=== PATIENT | female | born 2000 ===

== ENCOUNTER 2024-05-03 17:07 | Emergency (ER) | payer SELFPAY | END 2024-05-03 20:58 | disposition left against medical advice (07) | DX: Z53.21 Procedure and treatment not carried out due to patient leaving prior to being seen by health care provider (principal) | CPT/HCPCS: 99199 ==

== ENCOUNTER 2024-08-27 04:07 | Emergency (ER) | payer SELFPAY ==
[2024-08-27 04:07] VITALS: BP 103/50; PULSE 73; RESP 18; TEMP 36.8; O2SAT 100
[2024-08-27 04:14] VITALS: O2SAT 100
--- NOTE | 2024-08-27 04:16 | PC.NURSE ---
this patient bibems for initially sob, when RN assessed patient is breathing normally and is on room air with saturation of 100%. Patient is extremely intoxicated and has noticeable odor of ETOH. Patient keeps asking where is lenard (her boyfriend) RN explained to this patient that she was bibems and that he is not here at the moment. Patient reassured that we will run some test to make sure all checks out. Patient then states she needs to urinate and would like a HCG test. MD in room and states that he will order the same. This patient is on rn cardiac rehab and has stable vital signs. Patient has a protected air way.
--- NOTE | 2024-08-27 04:38 | ED.GENADULT ---
HPI - General Adult General Chief complaint: Altered Mental Status Stated complaint: Disorganized breathing, responsive to pain, ?ETOH Time Seen by Provider: 08/27/24 04:16 History of Present Illness HPI narrative: Patient is a 23-year-old female who presents emergency department chief complaint of alcohol intoxication. Patient has prior history and apparently EMS was called after she was highly intoxicated this evening and the patient was given oxygen a breathing treatment by EMS. The patient reports that she thinks she could be or may have a urinary tract infection. Related Data Allergies Allergy/AdvReac Type Severity Reaction Status Date / Time No Known Allergies Allergy Verified 08/27/24 04:22 Review of Systems Review of Systems: A 10 system review of systems was completed on the patient and is negative except for what is stated in the HPI. Nursing and ancillary documentation was reviewed. Exam Narrative: GENERAL: Well-appearing, well-nourished, and in no acute distress. HEAD: Normocephalic, atraumatic. EYES: PERRLA and EOMI. ENT: Nares clear, no rhinorrhea or epistaxis. Mucous membranes moist. NECK: Supple. CHEST: Clear to auscultation. No respiratory distress. HEART: Regular rate and rhythm. No murmur heard. Normal peripheral pulses. ABDOMEN: Soft, nontender, nondistended, normal active bowel sounds. EXTREMITIES: Normal range of motion. No edema. SKIN: Warm, dry, no rash. NEURO: No focal deficits. Alert and oriented x3. PSYCH: Normal mood and affect. Course Vital Signs Vital signs: Vital Signs Temperature 36.8 C 08/27/24 04:07 Pulse Rate 73 08/27/24 04:07 Respiratory Rate 18 08/27/24 04:07 Blood Pressure 103/50 L 08/27/24 04:07 Pulse Oximetry 100 08/27/24 04:07 Oxygen Delivery Room Air 08/27/24 04:07 Temperature 36.8 C 08/27/24 04:07 Pulse Rate 73 08/27/24 04:07 Respiratory Rate 18 08/27/24 04:07 Blood Pressure 103/50 L 08/27/24 04:07 Pulse Oximetry 100 08/27/24 04:14 Oxygen Delivery Room Air 08/27/24 04:14 Medical Decision Making [facility] Narrative Medical decision making narrative: Differential diagnosis includes alcohol intoxication, UTI, , Patient was hydrated in the emergency department and antiemetics Patient's blood alcohol level was 200 patient will be observed in the emergency department until she is safe to be 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4) M/mm3 Hgb 11.4 L (12.0-15.0) g/dL Hct 34.9 L (37.0-47.0) % MCV 80.8 (80-100) fl MCH 26.4 (26-34) pg MCHC 32.7 (32-36) g/dl RDW 14.7 H (11.5-14.5) % Plt Count 289 (150-375) k/mm3 MPV 9.2 (7.4-10.4) fl Immature Gran % (Auto) 0.2 (0-0.5) % Neut % (Auto) 33.7 L (45.5-73.1) % Lymph % (Auto) 53.6 H (18.3-44.2) % Barry % (Auto) 10.2 H (2.6-8.5) % Eos % (Auto) 1.8 (0-4.4) % Baso % (Auto) 0.5 (0.2-1.2) % Lymph # (Auto) 3.04 (0.9-3.2) K/mm3 Barry # (Auto) 0.6 (0.1-0.6) K/mm3 Eos # (Auto) 0.1 (0-0.3) K/mm3 Baso # (Auto) 0.0 (0.0-0.1) K/mm3 Abs Immat Gran (auto) 0.01 (0.00-0.031) K/mm3 Absolute Neuts (auto) 1.9 (1.3-6.7) K/mm3 Absolute Nucleated RBC 0.000 (0.0-0.012) K/mm3 Nucleated RBC % 0.0 (0.0-0.2) % Sodium 142 (137-145) mmol/L Potassium 3.8 (3.4-5.0) mmol/L Chloride 112 H (98-107) mmol/L Carbon Dioxide 24 (22-30) mmol/L Anion Gap 6 (4-12) mmol/L BUN 11 (7-17) mg/dL Creatinine 0.60 L (0.7-1.0) mg/dL Estim Creat Clear Calc 109 ml/min Estimated GFR > 60 (59 - ) Glucose 99 (65-110) mg/dL Calcium 8.6 (8.4-10.2) mg/dL Total Bilirubin 0.3 (0.2-1.3) mg/dL AST 25 (14-36) U/L ALT 15 (6-35) U/L Alkaline Phosphatase 69 (38-126) U/L Total Protein 7.0 (6.3-8.2) g/dL Albumin 4.1 (3.5-5.1) g/dL Urine Color Yellow (Yellow) Urine Appearance Clear (Clear) Urine pH 6.0 (5.0-9.0) Ur Specific Davison 1.008 (1.001-1.035) Urine Protein Negative (Negative) mg/dL Urine Glucose (UA) Negative (Negative) mg/dL Urine Ketones Negative (Negative) mg/dL Ur Blood (Man) 2+ H (Negative) Urine Nitrate Negative (Negative) Urine Bilirubin Negative (Negative) Urine Urobilinogen 0.2 (<2.0) mg/dL Leukocyte Esterase Rfl Trace H (Negative) ERYN/UL Urine RBC 6-10 H (0-2) /hpf Urine WBC 0-5 (0-3) /hpf Ur Squamous Epith Cells Occasional (Few) /hpf Urine Bacteria Rare /hpf Urine Casts 0-2 POC Urine HCG, Qual Negative (Negative) Ethyl Alcohol 200 (<10) mg/dL Discharge Plan Discharge Clinical Impression: Alcoholic intoxication Patient Disposition: Home, Self-Care Condition: Stable Instructions: Antibiotic Form, Alcohol Intoxication (ED) Follow-up/Referrals: Teodoro Fam MD [Physician] - PHYSICIAN,CHIEF INSPECTOR [Primary Care Provider] -
[2024-08-27 04:46] LABS: Basophils Percent Auto 0.5 % (0.2-1.2); Eosinophils Absolute Auto 0.1 K/mm3 (0-0.3); Eosinophils Percent Auto 1.8 % (0-4.4); Hematocrit 34.9 % (37.0-47.0); Hemoglobin 11.4 g/dL (12.0-15.0); Immature Granulocyte Absolute 0.01 K/mm3 (0.00-0.031); Immature Granulocyte Percent A 0.2 % (0-0.5); Lymphocytes Absolute Auto 3.04 K/mm3 (0.9-3.2); Lymphocytes Percent Auto 53.6 % (18.3-44.2); Mean Corpuscular HGB Conc 32.7 g/dl (32-36); Mean Corpuscular Hemoglobin 26.4 pg (26-34); Mean Corpuscular Volume 80.8 fl (80-100); Mean Platelet Volume 9.2 fl (7.4-10.4); Monocytes Absolute Auto 0.6 K/mm3 (0.1-0.6); Monocytes Percent Auto 10.2 % (2.6-8.5); Neutrophils Absolute Auto 1.9 K/mm3 (1.3-6.7); Neutrophils Percent Auto 33.7 % (45.5-73.1); Platelet Count Result 289 k/mm3 (150-375); Red Blood Count 4.32 M/mm3 (4.2-5.4); Red Cell Distribution Width 14.7 % (11.5-14.5); White Blood Count 5.7 K/mm3 (4.5-10.0)
[2024-08-27] MEDS: SODIUM CHLORIDE 0.9% IV 1,000 ML 999 ML IV CONT (04:47)
[2024-08-27] MEDS: ONDANSETRON INJ 4 MG/2 ML VIAL IV PUSH (04:47)
[2024-08-27 04:49] LABS: BEDSIDEPREGUCG Negative (Negative)
[2024-08-27 04:49] LABS: Add Urine Microscopic? YES; Appearance Urine Clear (Clear); Bacteria Urine Rare /hpf; Bilirubin Urine Negative (Negative); Blood Urine 2+ (Negative); Color Urine Yellow (Yellow); Glucose Urine UA Negative (Negative); Ketones Urine Negative (Negative); Leukocyte Esterase Ur Trace LEU/UL (Negative); Nitrate Urine Negative (Negative); Non Pathogenic Casts 0-2; Protein Urine Negative (Negative); Specific Grav Ur 1.008 (1.001-1.035); Squamous Epithelial Cell Urine Occasional /hpf (Few); Urobilinogen Urine 0.2 mg/dL (<2.0); WBC Urine 0-5 /hpf (0-3)
--- NOTE | 2024-08-27 04:52 | PC.NURSE ---
RN assisted patient to bathroom per patients request. Patient is very embarrassed and expressed please dont make me use a bed hines . RN explained to this patient that its probably best to use a bedpan due to her noticeable ETOH. Patient pushes to go to the bathroom. RN assisted patient to the bathroom. Patient was able to walk but had unsteady gait. Patients test is negative at bedside, patient informed and MD notified. Patients boyfriend is with patient at this time. They both state 'we dont know how she got so drunk because we drink like we did tonight often . Patient is laying on ER stretcher in room 11, with normal work of breathing.
[2024-08-27 04:54] LABS: Ethanol 200 mg/dL (<10)
[2024-08-27 04:56] LABS: Alanine Aminotransferase 15 U/L (6-35); Albumin Level 4.1 g/dL (3.5-5.1); Alkaline Phosphatase 69 U/L (38-126); Anion Gap 6 mmol/L (4-12); Aspartate Amino Transferase 25 U/L (14-36); Bilirubin,Total 0.3 mg/dL (0.2-1.3); Blood Urea Nitrogen 11 mg/dL (7-17); Calcium 8.6 mg/dL (8.4-10.2); Carbon Dioxide 24 mmol/L (22-30); Chloride 112 mmol/L (98-107); Estimated CRCL calculation 109 ml/min; Estimated Glomerular Filt Rate > 60; Glucose 99 mg/dL (65-110); Potassium 3.8 mmol/L (3.4-5.0); Sodium 142 mmol/L (137-145)
--- NOTE | 2024-08-27 06:26 | PC.NURSE ---
this patient is awaiting sobriety to be discharged. MD would like patient to be able to ambulate with steady gait.
--- NOTE | 2024-08-27 06:49 | PC.NURSE ---
patient family asked, why patient is still here. Informed that provider would like patient to be more awake, (sobriety) before discharge. Patient is resting on ER stretcher at this time.
[2024-08-27 08:12] VITALS: BP 105/72; PULSE 75; RESP 16; O2SAT 98
--- NOTE | 2024-08-27 08:15 | PC.NURSE ---
Pt. A&Ox4 and ambulatory.
== END 2024-08-27 08:25 | disposition home or self-care (01) ==
PROVIDERS: Emergency Provider Emergency Medicine
DX: F10.129 Alcohol abuse with intoxication, unspecified (principal); Y90.7 Blood alcohol level of 200-239 mg/100 ml
CPT/HCPCS: 36415; 80053; 81001; 81025; 82077; 85025; 96361; 96374; 99284; J2405; J7030

== ENCOUNTER 2025-07-31 13:44 | Emergency (ER) | payer OTHER, SELFPAY ==
[2025-07-31 13:48] VITALS: BP 137/80; PULSE 103; RESP 17; TEMP 36.4; O2SAT 99
--- OUTSIDE RECORDS SUMMARY | 2025-07-31 13:52 | XMS_ITS | Clinical Summary ---
Author Organization [facility] Address [facility] [place] [address] Care Team Providers Care Car Designer Name Role Phone Chanell Farr NP Primary Care Provider [phone] Allergies No known active allergies Medications albuterol (PROAIR RESPICLICK) 90 mcg/actuation inhaler Inhale 2 puffs every 6 (six) hours as needed for wheezing Active cyclobenzaprine (FLEXERIL) 5 mg tablet Take 1 tablet (5 mg total) by mouth 3 (three) times a day as needed 12/15/19 25 Active norethindrone-e.e stradioL-iron (Junel FE 10/10, ,) 1 mg-20 mcg (21)/75 mg (7) per tablet Take 1 tablet by mouth daily 84 tablet 3 02/22/20 25 Active FLUoxetine (PROzac) 20 mg capsule Take 1 capsule (20 mg total) by mouth daily 90 capsule 1 04/18/20 25 Active dicyclomine (BENTYL) 20 mg tablet Take 1 tablet (20 mg total) by mouth every 6 (six) hours 90 tablet 3 04/19/20 25 Active ondansetron (ZOFRAN) 4 mg tabletIndications :Nausea and vomiting, unspecified vomiting type Take 1 tablet (4 mg) total 30 minutes before starting colonoscopy prep. Use the 2nd tablet as needed for nausea and vomiting. 2 tablet 06/05/20 25 Active ferrous gluconate 324 mg (37.5 mg of elemental iron) tablet Take 0.0031 tablets (1 mg total) by mouth daily Active cyanocobalamin (Vitamin B-12) 100 mcg tabletIndications :Prevention of Vitamin B12 Deficiency Take 1 tablet (100 mcg total) by mouth daily Active lysine 1,000 mg tablet Take by mouth Active dicyclomine (BENTYL) 20 mg tablet Take 1 tablet (20 mg total) by mouth 2 (two) times a day 60 tablet 2 06/16/20 25 Active omeprazole (PriLOSEC) 40 mg capsule Take 1 capsule (40 mg total) by mouth 2 (two) times a day before breakfast and dinner for 14 days 28 capsule 06/22/20 25 Active bismuth subsalicylate 262 mg tablet,chewable Take 2 tablets (524 mg total) by mouth 4 (four) times a day before meals and nightly for 14 days 112 tablet 06/22/20 25 Active tetracycline (ACHROMYCIN,SUMYC IN) 500 mg capsule Take 1 capsule (500 mg total) by mouth 4 (four) times a day for 14 days 56 capsule 06/22/20 25 025 metroNIDAZOLE (FLAGYL) 500 mg tablet Take 1 tablet (500 mg total) by mouth 4 (four) times a day for 14 days 56 tablet 06/22/20 25 025 Active Problems Problem Noted Date Diagnosed Date Terminal ileitis with complication 06/05/2025 Assessment & Plan (06/05/2025 2:41 PM CDT): Orders: Calprotectin, fecal; Future CRP (acute phase); Future Abdominal pain 06/05/2025 Assessment & Plan (06/05/2025 2:41 PM CDT): Nausea and vomiting 06/05/2025 Anemia 06/05/2025 ASCUS with positive high risk HPV cervical 05/17 Overview (05/23/2025): 02/2025 - AScus with positive HR HPV 05/17/25- colposcopy with ECC and biopsy was done- bx and ECC were negative. Assessment & Plan (05/31/2025 3:21 PM CDT): Will plan to repeat pap in one year. Healthy lifestyle encouraged. Assessment & Plan (05/17/2025 2:34 PM CDT): Colposcopy with biopsy and ECC was done Encounter for surveillance of contraceptive pill s 11/23/2024 Assessment & Plan (11/23/2024 12:32 PM AIRCRAFT PILOT): I feel patient possibly suppressed her menses by taking hormone pills consecutively between September and October. That may explain some of her brown-tinged discharge, as she may be having breakthrough bleeding. A significant amount of time was spent educating patient on proper pill use. We discussed taking all pills in a pill pack around the same time every day. She is to start a new pack the very next day after finishing her last placebo pill rather are not she is bleeding. I did mention that sometimes the lower dose norethindrone containing COCs can cause patients not to have regular menstrual cycles, and often won't have menses at all. I did stress the importance that if her menses, if she continues to have monthly bleeding/cycles, should always start somewhere during the placebo week. If she is noticing her cycles are starting during week 1, 2, or 3, then her control may not be as effective and there is a higher chance of unexpected . She is to call office if this should occur. Condom use encouraged. IBD (inflammatory bowel disease) 09/07/2024 Assessment & Plan (04/25/2025 7:29 AM CDT): IBS vs. IBD. Ordered labs and referral to GI Orders: CBC with auto differential; Future Comprehensive metabolic panel; Future Calprotectin, fecal; Future FIT occult blood, fecal; Future Ambulatory referral to Gastroenterology; Future Assessment & Plan (09/07/2024 1:37 PM AIRCRAFT PILOT): IBD shown on CT scan. Will repeat check lab work today. I recommended a bland low FODMAP diet as close as she can follow it. Refer to GI. Finish out the Augmentin. She has Zofran for nausea. Iron deficiency anemia due to chronic blood loss 09/07/2024 Assessment & Plan (06/05/2025 2:41 PM CDT): Assessment & Plan (04/25/2025 7:29 AM CDT): Mild anemia last December. I asked her to get labs done. She is on control with iron. She may need daily oral iron. Referral to gI Orders: CBC with auto differential; Future Comprehensive metabolic panel; Future Calprotectin, fecal; Future FIT occult blood, fecal; Future Ambulatory referral to Gastroenterology; Future Assessment & Plan (09/07/2024 1:37 PM AIRCRAFT PILOT): Mild anemia found in the ER. Will recheck CBC and iron profile today. Irregular bleeding 06/10/2024 Assessment & Plan (02/21/2025 9:24 AM CDT): Again, discussed importance of taking pills regularly. HCG negative. Await pap results. Assessment & Plan (06/10/2024 2:55 PM CDT): Discussed likely from starting and stopping patch. She would like to restart the pill. Reviewed risks, benefits,warning signs, proper use. When to ER reviewed including large clots or saturating more than pad/hr. Closed head injury 05/03/2024 Moderate episode of recurrent major depressive d isorder 02/24/2024 Assessment & Plan (02/24/2024 9:34 AM CDT): Discussed starting a medication and pt is agreeable. Will start fluoxetine 20 mg . Discussed starting dose and titration to full dose, possible SE and time frame for expected results. Call if any suicidal thoughts or questions concerning SE. Do not abruptly stop medication without calling office. Follow up in 3-4 weeks for recheck and continuation of medications. Anxiety 01/25/2018 Assessment & Plan (09/07/2024 1:36 PM AIRCRAFT PILOT): She never started the fluoxetine has she states the pharmacy kept saying that did not have it. Will resend it to [facility]'s her preferred pharmacy. 20 mg once daily Resolved Problems Problem Noted Date Diagnosed Date Resolved Date Contusion of left knee 05/03/202409/07 Encounters Date Type Department Care Team Description 06/19/20 Results Follow-Up [facility] Gastroenterology at [address] [address] Lobo Carballo MD Surgical pathology 06/16/20 8:04 AM CDT Anesthesia Event [address] [address] Lobo Carballo MD Fitterer, Morgan Elisabeth, [employer] 06/16/20 8:00 AM CDT - 06/16/20 8:30 AM CDT Surgery [address] [address] Lobo Carballo MD ESOPHAGOGASTRODUODENOSCOPY BIOPSY 06/16/20 6:56 AM CDT - 06/16/20 9:15 AM CDT Hospital Encounter [address] [address] Lobo Carballo MD Nausea and vomiting, unspecified vomiting type; Anemia, unspecified type Discharge Disposition: Discharge to home or self care 06/06/20 Results Follow-Up [facility] Gastroenterology at [address] [address] Lobo Carballo MD CRP (acute phase) 06/05/20 2:55 PM CDT Lab [address] [address] Terminal ileitis with complication (HCC) 06/05/20 2:00 PM CDT Office Visit [facility] Gastroenterology at [address] [address] Lobo Carballo MD Terminal ileitis with complication (HCC) (Primary Dx); Iron deficiency anemia due to chronic blood loss; Abdominal pain 06/05/20 Orders Only [facility] Gastroenterology at [address] [address] Lobo Carbalol MD Nausea and vomiting, unspecified vomiting type (Primary Dx); Anemia, unspecified type 09/10/20 25 2:45 PM CDT Office Visit Brandon Adams [address] [facility] [address] [place] [address] Dixie Hsieh MD ASCUS with positive high risk HPV cervical (Primary Dx) 05/17/20 25 1:30 PM CDT Procedure visit Brandon Adams [address] [place] [address] [address] [place] [address] Dixie Hsieh MD ASCUS with positive high risk HPV cervical (Primary Dx); Pre-procedural examination 05/17/20 Orders Only Brandon Adams [address] [place] [address] [address] [place] [address] Dixie Hsieh MD 05/05/20 Telephone Brandon Adams [address] [place] [address] [address] [place] [address] Dixie Hsieh MD Appointment/Schedules from Last 3 Months Immunizations Immunization Administration Dates Next Due DTaP 05/01/2003,2002 DTaP / Hep B / IPV 02/27/2003 DTaP, Unspecified 06/13/2008,05/21/2004,02/28/20 HPV9 01/25/2018 Hep B, Unspecified 08/03/2003,02/27/2003, 003 HiB 05/21/2004 Hib (HbOC) 05/01/2003,02/27/2003 Hib (PRP-T) 2002 IPV 06/13/2008, 4,02/27/2003,12/22 Influenza, Quadrivalent, Spl it, Preservative Free, Intramuscular 07/16/2020 Influenza, Unspecified 09/21/2023(Deferr ed: Patient Refused),09/21/2022(Deferred: Patient Refused) MMR 06/13/2008,12/21/2003 Meningococcal MCV4P (Menactra) 07/16/2020,2016 Pneumococcal Conjugate 7-Valent 08/03/20 03,05/01/2003,02/27/2003,12/22 Pneumococcal Polysaccharide PPV23 2002 Tdap 06/10/2017 Varicella 06/13/2008,12/21/2003 Surgical History Surgery Date Site/Laterality Comments DILATION AND CURETTAGE OF UTERUS UPPER GASTROINTESTINAL ENDOSCOPY 06/16/2025 COLONOSCOPY 06/16/2025 ARM SURGERY Left w two titanium plates Medical History Medical History Date Comments Asthma Family History Medical History Relation Name Comments No Known Problems Father No Known Problems Mother Relation Name Status Comments Father Mother Social History Tobacco Use Types Packs/Day Years Used Date Smoking Tobacco: Every Day Vaping Smokeless Tobacco: Never Tobacco Cessation:Ready to Q uit: Not Asked; Counseling Given: Not Answered Alcohol Use Standard Drinks/Week Comments Yes 3 (1 standard drink = 0.6 oz pur e alcohol) PHQ-2 Answer Date Recorded PHQ-2 Total Score 0 05/17/2025 PHQ-9 Answer Date Recorded PHQ-9 Total Score 22 02/22/2024 AUDIT-C Answer Date Recorded Q1: How often do you have a drink containing alc ohol? 2-4 times a month 06/16/2025 Q2: How many drinks containi ng alcohol do you have on a typical day when you are drinking? 5 or 6 06/16/2025 Q3: How often do you have si x or more drinks on one occasion? Less than monthly 06/16/2025 Personal Safety Answer Date Recorded Have you ever been in or are you currently in a harmful physical or emotional relationship or is someone making you feel afraid or unsafe? Denies 06/16/2025 Comments No Sex and Gender Information Value Date Recorded Sex Assigned at Not on file Legal Sex Female 5:08 PM CDT Gender Identity Not on file Sexual Orientation Not on file Obstetrics History Para Term AB IAB SAB Ectopic Multiple Livin g Live Births 1 1 0 Date Outcome GA Total Labor Labor/2nd/3rd Weight Sex Type Anes PTL Lynette A1 A5 Name Clin AB Last Filed Vital Signs Vital Sign Reading Time Taken Comments Blood Pressure 114/78 06/16/2025 9:10 AM CDT Pulse 68 06/16/2025 9:10 AM CDT Temperature 36.6 C (97.8 F) 06/16/2025 8:46 AM CDT Respiratory Rate 20 06/16/2025 9:10 AM CDT Oxygen Saturation 100% 06/16/2025 9:10 AM CDT Inhaled Oxygen Concentration - - Weight 81.6 kg (180 lb) 06/16/2025 7:23 AM CDT Height 167.6 cm (5' 6) 06/16/2025 7:23 AM CDT Body Mass Index 29.05 06/16/2025 7:23 AM CDT Plan of Treatment Health Maintenance Due Date Last Done Comments Hepatitis C Screening 2002 Pneumococcal vaccine <65 (1 of 1 - PPSV23, PCV20, or PCV21) 2008 08/03/2003, 05/01/2003, 02/27/2003, Additional history exists HPV Vaccines (2 - 3-dose series) 02/22/2018 01/26/20 18 Meningococcal B Vaccine (1 o f 2 - Standard) 2018 Influenza Vaccine (#1) 2025 07/16/2020 Cervical Cancer Screening 02/21/2026 02/21/2025, Chlamydia and Gonorrhea (GC/ CT) Screening 02/21/2026 02/21/2025 Regular Well Visit/Exam 18-64 02/21/2026 02/21/2025, 02/18/2024 Depression Screening 05/17/2026 05/17/2025, 02/21/2025, 02/22/2024, Additional history exists DTaP/Tdap/Td Vaccine (7 - Td or Tdap) 06/10/2027 06/10/2017, 06/13/2008, 05/21/2004, Additional history exists Hepatitis B Screening Completed 08/03/2003 , 02/27/2003, 02/27/2003, Additional history exists Varicella Vaccines Completed 06/13/2008, 12/21/2003 Medical Devices Implanted Type Area Early Childhood Director Device Identifier Shelf Expiration Date Model / Serial / Lot Plate Left: Arm Procedures Procedure Name Priority Date/Time Associated Diagnosis Comments SURGICAL PATHOLOGY Routine 06/16/2025 8:13 AM CDT Nausea and vomiting, unspecified vomiting type Anemia, unspecified type EGD 06/16/2025 7:57 AM CDT COLONOSCOPY 06/16/2025 7:57 AM CDT COLON REMOVAL SNARE 06/16/2025 7:56 AM CDT Nausea and vomiting, unspecified vomiting type Anemia, unspecified type ESOPHAGOGASTRODUODENOSCOPY BIOPSY 06/16/2025 7:56 AM CDT Nausea and vomiting, unspecified vomiting type Anemia, unspecified type POCT HCG, URINE Routine 06/16/2025 7:16 AM CDT CRP (ACUTE PHASE) Routine 06/05/2025 3:04 PM CDT Terminal ileitis with complication (HCC) POCT HCG, URINE Routine 05/17/2025 1:45 PM CDT Pre-procedural examination TISSUE PATHOLOGY Routine 05/17/2025 12:00 AM CDT N. GONORRHOEAE/C. TRACHOMATI S AMPLIFICATION Routine 02/21/2025 9:14 AM CDT PAP, REFLEX HPV Routine 02/21/2025 9:14 AM CDT Well woman exam from Last 3 Months or Most Recently Relevant to Health Maintenance Results * Surgical pathology (06/16/2025 8:13 AM CDT) Tissue (Gastric/Stomach biopsy) 06/16/2025 8:13 AM CDT Tissue specimen (specimen) (Duodenum, Biopsy) 06/16/2025 8:14 AM CDT Tissue specimen (specimen) (Polyp(s), colon/colorectal, esophageal, gastric) 06/16/2025 8:26 AM CDT Narrative PATHOLOGY [facility] FOR [facility] - 06/19/2025 12:26 PM CDT [facility] Department of Pathology [address] [place] [address] Note to Patients: This report may contain a detailed description of human tissue sent by a health care provider to the laboratory for pathologic evaluation. The content of this report is essential for diagnosis and may provide important critical findings. This information may be unfamiliar to patients to review without a medical professional present. It is advised that the patient review this report in the presence of a health care provider who can answer questions and explain the details. Final Report Patient Name: KAILASH HERNANDEZ : 2000 (Age: 24) Gender: F Address: [address] [place] [address] Hospital #: [id number] Service: Gastro Location: Patient Type: [facility] Taken: 06/16/2025 Received: 06/16/2025 Accessioned: 06/16/2025 Reported: 06/19/2025 Physician(s): Joni Gautam N.P. Diagnosis: A. Stomach, biopsy: - Antral and oxyntic mucosa with focal active chronic Helicobacter pylori gastritis. B. Small intestine, duodenum, biopsy: - Duodenal mucosa with gastric mucin cell metaplasia, in keeping with peptic- type injury. - Negative for intraepithelial lymphocytosis, villous blunting and crypt hyperplasia. C. Colon, ascending, polyp, polypectomy: - Sessile serrated lesion. Austin Hollingsworth MD, PHD Report Electronically Reviewed and Signed Out By Austin Hollingsworth MD, PHD 06/19/2025 12:26:16 Specimen(s) Received: A: Stomach biopsy rule out H. Pylori - cold biopsy B: Duodenum biopsy rule out Celiac's disease - cold biopsy C: Ascending colon polyp - cold snare Microscopic Description: Unless gross-only is specified, the final diagnosis for each specimen is based on a microscopic examination of each tissue sample. Clinical History: The patient is a 24-year-old woman with unspecified nausea and vomiting, and anemia. Operative procedure: Upper GI endoscopy and colonoscopy with biopsy. Gross Description Received in three formalin jars labeled with the patient's identifiers. A. Labeled stomach biopsy rule out H pylori, cold biopsy and consists of two mccullough tissue fragments measuring 0.2 cm and 0.3 cm. Entirely submitted. Labeled A1. Jar 0. B. Labeled duodenal biopsy rule out celiac disease-cold biopsy and consists of six mccullough tissue fragments ranging from 0.1-0.2 cm. Entirely submitted. Labeled B1. Jar 0. C. Labeled ascending colon polyp-cold snare and consists of a 0.6 cm mccullough tissue fragment, which is entirely submitted. Labeled C1. Jar 0. jjmhb/06/16/2025 15:03 CHRIS Henriquez, PA (ASCP) Microscopic slide review and interpretation for this case was performed at [facility], Department of Surgical Pathology, [address] [facility] [place] [place] [id number], [place] [address] [facility] # [id number] us Lobo Carballo MD LAB PATHOLOGY ORDERABLES Fin al Result PATHOLOGY [facility]P [facility] FOR [facility] * EGD (06/16/2025 7:57 AM CDT) Anatomical Region Laterality Modality Other Narrative Procedure Note Lobo Carballo MD - 06/16/2025 7:57 AM CDT [facility] Patient Name: Kailash Hernandez Procedure Date: 06/16/2025 7:57 AM Date of : 2000 Admit Type: Outpatient Age: 24 Gender: Female Attending MD: Lobo Carballo M.D., Room: [facility]OC PROCEDURE 1 Note Status: Finalized Procedure: Upper GI endoscopy Indications: Abdominal pain Referring MD: Chanell Farr F.N.P. Providers: Lobo Carballo M.D. Medicines: Monitored Anesthesia Care Complications: No immediate complications. Estimated blood loss:None. Estimated Blood Loss: Estimated blood loss: none. Procedure: The benefits, risks, and alternatives to theprocedure and sedation were discussed and informed consentwas obtained. The scope was passed under direct vision. The [id number] UPPER ENDOSCOPY was introduced through the mouth, and advanced to the second part of duodenum. The upper GI endoscopy was accomplished without difficulty. The patient tolerated the procedure well. Findings: The esophagus was normal. Patchy minimal inflammation characterized by erythema was found inthe gastric antrum. Biopsies were taken with a cold forceps forHelicobacter pylori testing. The examined duodenum was normal. Biopsies for histology were takenwith a cold forceps for evaluation of celiac disease (2 bulb, 4 second portion). Impression: - Normal esophagus. - Minimal antral gastritis, characterized byerythema. Biopsied. - Normal examined duodenum. Biopsied to excludeceliac disease. Recommendation: - Await pathology results. - Await results of H pylori testing. Treat for eradication if H pylori positive. Lobo Carballo M.D. Lobo Carballo M.D. 06/16/2025 8:17:14 AM . Number of Addenda: 0 Note Initiated On: 06/16/2025 7:57 AM us Lobo Carballo MD ENDOSCOPY PROCEDURES Final R esult * Colonoscopy (06/16/2025 7:57 AM CDT) Anatomical Region Laterality Modality Other Narrative Procedure Note Lobo Carballo MD - 06/16/2025 7:57 AM CDT [facility] Patient Name: Kailash Hernandez Procedure Date: 06/16/2025 7:57 AM Date of : 2000 Admit Type: Outpatient Age: 24 Gender: Female Attending MD: Lobo Carballo M.D., Room: [facility] PROCEDURE 1 Note Status: Finalized Procedure: Colonoscopy Indications: Iron deficiency anemia, Abnormal CT of the GItract Referring MD: Janel Luna Providers: Lobo Carballo M.D. Medicines: Monitored Anesthesia Care Complications: No immediate complications. Estimated blood loss:None. Estimated Blood Loss: Estimated blood loss: none. Procedure: The benefits, risks and alternatives of theprocedure and sedation were discussed and informed consentwas obtained. All questions were answered. Please referto the signed informed consent document in the medical record. The scope was passed under direct vision.The [id number] COLONSCOPE was introduced through theanus and advanced to the terminal ileum. The colonoscopy was performed without difficulty. The patient tolerated the procedure well. The quality of thebowel preparation was good. A computer-assisted devicewith artificial intelligence ([employer]) designed todetect polyps was used during the exam. Findings: A 3 mm polyp was found in the ascending colon. The polyp was sessile. The polyp was removed with a cold snare. Resection and retrieval were complete. Internal hemorrhoids were found during retroflexion. The hemorrhoids were mild. The terminal ileum appeared normal. Impression: - One 3 mm polyp in the ascending colon, removedwith a cold snare. Resected and retrieved. - Internal hemorrhoids. - The examined portion of the ileum was normal. Recommendation: - Await pathology results. - Timing of repeat colonoscopy to be based on pathology results. Further recommendations tofollow once pathology results available. - Will start hyoscyamine 0.375mg twice daily for symptoms that likely represent irritable bowel syndrome. - Follow up in my office in approximately 12 weeksto discuss any residual symptoms. Lobo Carballo M.D. Lobo Carballo M.D. 06/16/2025 8:44:11 AM . Number of Addenda: 0 Note Initiated On: 06/16/2025 7:57 AM Lobo Carballo MD ENDOSCOPY PROCEDURES Final R esult * POCT hCG, urine (06/16/2025 7:16 AM CDT) HCG, ur, POC Negative Negative Lot Number [id number] QC Backgroud Clear Acceptable QC Control Line Acceptable Urine 06/16/2025 7:16 AM CDT Jay Alexis MD POINT OF CARE TEST RAYSHAWN TRIPLETT Final Result * CRP (acute phase) (06/05/2025 3:04 PM CDT) Pathologist [facility] CRP 7.8 <=10.0 mg/L Blood 06/05/2025 3:04 PM CDT 06/05/2025 6:29 PM CDT Loob Carballo MD LAB BLOOD ORDERABLES Final R esult [facility] [address] [facility] Department [place] [address] * POCT hCG, urine (05/17/2025 1:45 PM CDT) HCG, ur, POC Negative Negative Lot Number [id number] Comment:EXP: 01/18/2026 QC Backgroud Clear Acceptable QC Control Line Acceptable Urine 05/17/2025 1:45 PM CDT Dixie Hsieh MD POINT OF CARE TEST ORDERABLES Final Result * Surgical pathology tissue exam request - other pathology (05/17/2025 12:00 AM CDT) . Comment [facility] - 01 Comment: Material submitted: . PART A: cervix - CERVICAL BIOPSY 12:00. Modifiers: 12:00 PART B: endocervix - ENDOCERVICAL CURETTAGE . Comment [facility] - 01 Comment: Clinician provided ICD-10: R87.610 R87.810 . Comment [facility] - 01 Comment: Clinical history: . HX:ASCUS +HPV;12;00 . Comment [facility] 02 Comment: Diagnosis: Part A: CERVICAL BIOPSY 12:00: BENIGN CERVICAL TISSUE WITH REACTIVE CHANGES. ACUTE CERVICITIS. Part B: ENDOCERVICAL CURETTAGE: MINUTE FRAGMENTS OF BENIGN ENDOCERVICAL GLANDS, SCANT SQUAMOUS EPITHELIUM, INFLAMMATION, AND MUCUS. [facility] 05/23/2025 1505 Local . Comment [facility] 02 Comment: Electronically signed: . Miracle Braun MD, Pathologist . Comment [facility] 03 Comment: Gross description: . 2 Containers, formalin-filled, labeled with patient identification. Part A: CERVICAL BIOPSY 12:00: 1 FRAGMENT(S) OF MCCULLOUGH MUCOID TISSUE MEASURING 0.4 X 0.3 X 0.1 CM. SUBMITTED RECEIVED IN CASSETTE(S) A1. Part B: ENDOCERVICAL CURETTAGE: RECEIVED IS AN ENDOCERVICAL BRUSH. SCRAPINGS PRODUCE 1.0 X 1.0 X 0.1 CM IN AGGREGATE OF MUCUS AND HOPE-MCCULLOUGH SOFT MATERIAL. THE SPECIMEN IS FILTERED AND ENTIRELY SUBMITTED IN CASSETTE(S) B1. [facility] 05/19/2025 0401 Local . Comment [facility] Comment: Pathologist provided ICD-10: N72 . Comment [facility] Comment: CPT . [id number], [id number] 05/17/2025 05/17/2025 Narrative [facility] - 05/23/2025 4:12 PM CDT Performed at: - [facility] [address] [place] [id number] Scorer Single: Dev Schmidt MD, Phone: [phone] [facility]formed at: [facility] [address] [place] [id number] Scorer Single: Cheng Ferraro MD, Phone: [phone] Performed at: - [facility] [address] [place] [id number] Scorer Single: Dev Schmidt MD, Phone: [phone] Specimen Comment: No. of containers..02 Tissue us Dixie Hsieh MD LAB PATHOLOGY ORDER TANIA Final Result [facility] 02 [facility] 03 * (ABNORMAL) Pap, reflex HPV (02/21/2025 9:14 AM CDT) Clinical indication Comment(A) [facility] - 01 Comment: EPITHELIAL CELL ABNORMALITY. ATYPICAL SQUAMOUS CELLS OF UNDETERMINED SIGNIFICANCE (ASC-US). Recommendation Comment(A) [facility] - 01 Comment:Suggest follow up as clinically appropriate. Specimen adequacy: Comment [facility] - 01 Comment: Satisfactory for evaluation. Endocervical and/or squamous metaplastic cells (endocervical component) are present. Clinician provided ICD10 Comment [facility] - 01 Comment:Z01.419 Performed by Comment [facility] - 01 Comment:Aliya Ojeda, Fpga Engineer (ASCP) Electronically signed by Comment [facility] - 01 Comment:Claudia Kulkarni MD, Pa thologist . . [facility] - 01 Pathologist provided ICD10 Comment [facility] - 01 Comment:R87.610 Note: Comment [facility] - 01 Comment: The Pap smear is a screening test designed to aid in the detection of premalignant and malignant conditions of the uterine cervix. It is not a diagnostic procedure and should not be used as the sole means of detecting cervical cancer. Both false-positive and false-negative reports do occur. Test methodology Comment [facility] - 01 Comment: This liquid based ThinPrep(R) pap test was screened with the use of an image guided system. . Comment [facility] - 01 Comment:See below for HPV te sting results. Thin prep 02/21/2025 9:14 AM CDT 02/21/2025 Narrative [facility] - 02/27/2025 8:09 PM CDT Performed at: [address] [id number] Scorer Single: Allegra Mcfarlane MD, Phone: [phone] Specimen Comment: [id number] Specimen Comment: No. of containers..01 ThinPrep Vial Phyllis Parekh NP LAB CYTOLOGY ORDERABLES Fin al Result Performing Organization Address City/[facility] Co de Phone Number [facility] - * N. gonorrhoeae/C. trachomatis Amplification (02/21/2025 9:14 AM CDT) C. trachomatis RNA Negative Negative [facility] 02 N. gonorrhoeae RNA Negative Negative [facility] 02 02/21/2025 9:14 AM CDT 02/21/2025 Narrative [facility] - 02/27/2025 8:09 PM CDT Performed at: [address] [id number] Scorer Single: Allegra Mcfarlane MD, Phone: [phone] Phyllis Parekh NP LAB MICROBIOLOGY - GENERAL ORDERABLES Final Result Performing Organization Address City/[facility]/ZIP Co de Phone Number [facility] 02 from Last 3 Months or Most Recently Relevant to Health Maintenance Insurance [employer] CHOICE PLUS [address] [facility] [address] [place] [id number] [facility] CHOICE PLUS WORKERS COMPENSATION GENERIC [address] [place] [address] Care Teams Car Designer Relationship Specialty Start Date End Date Chanell Farr NP [address] [facility] [address] [place] [address] PCP - General Family Medicine 03/06/25
--- OUTSIDE RECORDS SUMMARY | 2025-07-31 13:52 | XMS_ITS | Encounter Summary ---
Author Organization [facility] Healthcare Address [address] [place] [address] Care Team Providers Care Alodize Machine Operator Name Role Phone Chanell Farr NP Primary Care Provider Encounter Details Date Type Department Care Team (Latest Contact Info) Description 06/06/2025 Results Follow-Up [facility] Group Gastroenterology at [address] [place] [address] Lobo Carballo MD [address] [place] [address] [address] [place] [address] CRP (acute phase) Social History Tobacco Use Types Packs/Day Years Used Date Smoking Tobacco: Every Day Vaping Smokeless Tobacco: Never Alcohol Use Standard Drinks/Week Comments Not Currently 0 (1 standard drink = 0.6 oz pur e alcohol) AUDIT-C Answer Date Recorded Q1: How often do you have a drink containing alc ohol? 2-4 times a month 02/18/2024 Q2: How many drinks containi ng alcohol do you have on a typical day when you are drinking? 5 or 6 02/18/2024 Q3: How often do you have si x or more drinks on one occasion? Less than monthly 02/18/2024 PHQ-2 Answer Date Recorded PHQ-2 Total Score 0 05/17/2025 PHQ-9 Answer Date Recorded PHQ-9 Total Score 22 02/22/2024 Personal Safety Answer Date Recorded Have you ever been in or are you currently in a harmful physical or emotional relationship or is someone making you feel afraid or unsafe? Denies 09/30/2024 Comments Unknown Sex and Gender Information Value Date Recorded Sex Assigned at Not on file Legal Sex Female 5:08 PM CDT Gender Identity Not on file Sexual Orientation Not on file documented as of this encounter Plan of Treatment Not on file documented as of this encounter Visit Diagnoses Not on filedocumented in this encounter Care Teams Alodize Machine Operator Relationship Specialty Start Date End Date Chanell Farr NP [address] [facility] [address] [place] [address] PCP - General Family Medicine 03/06/25 documented as of this encounter
--- OUTSIDE RECORDS SUMMARY | 2025-07-31 15:13 | XMS_ITS | Clinical Summary ---
Author Organization [facility] Address [facility] [place] [address] Care Team Providers Care Certified Paralegal Name Role Phone Chanell Farr NP Primary Care Provider [phone] Allergies No known active allergies Medications albuterol [...] 11/23/2024 Assessment & Plan (11/23/2024 12:32 PM SHAFTING CLEANER): I feel patient possibly suppressed her menses [...] Future Assessment & Plan (09/07/2024 1:37 PM SHAFTING CLEANER): IBD shown on CT scan. Will repeat [...] Future Assessment & Plan (09/07/2024 1:37 PM SHAFTING CLEANER): Mild anemia found in the ER. Will [...] 01/25/2018 Assessment & Plan (09/07/2024 1:36 PM SHAFTING CLEANER): She never started the fluoxetine has she states the pharmacy kept saying that did not have it. Will resend it to [facility]'s her preferred pharmacy. 20 mg once daily Resolved Problems Problem Noted Date Diagnosed Date Resolved Date Contusion of left knee 05/03/202409/07 Encounters Date Type Department Care Team Description 06/19/20 Results Follow-Up [facility] Gastroenterology at [address] [address] Lobo Carballo MD Surgical pathology 06/16/20 8:04 AM CDT Anesthesia Event [address] [address] Lobo Carballo MD Fitterer, Morgan Elisabeth, SUPPLY CHAIN PROGRAM MANAGER 06/16/20 8:00 AM CDT - 06/16/20 8:30 AM CDT Surgery [address] [address] Lobo Carballo MD ESOPHAGOGASTRODUODENOSCOPY BIOPSY 06/16/20 6:56 AM CDT - 06/16/20 9:15 AM CDT Hospital Encounter [address] [address] Lobo Carballo MD Nausea and vomiting, unspecified vomiting type; Anemia, unspecified type Discharge Disposition: Discharge to home or self care 06/06/20 Results Follow-Up [facility] Gastroenterology at [address] [address] Lobo Carballo MD CRP (acute phase) 06/05/20 2:55 PM CDT Lab [address] [address] Terminal ileitis with complication (HCC) 06/05/20 2:00 PM CDT Office Visit [facility] Gastroenterology at [address] [address] Lobo Carballo MD Terminal ileitis with complication (HCC) (Primary Dx); Iron deficiency anemia due to chronic blood loss; Abdominal pain 06/05/20 Orders Only [facility] Gastroenterology at [address] [address] Lobo Carballo MD Nausea and vomiting, unspecified vomiting type (Primary Dx); Anemia, unspecified type 09/10/20 25 2:45 PM CDT Office Visit Brandon Adams [address] [facility] [address] [place] [address] Dixie Hsieh MD ASCUS with positive high risk HPV cervical (Primary Dx) 05/17/20 25 1:30 PM CDT Procedure visit Brandon Adams [address] [place] [address] [address] [place] [address] Dixie Hsieh MD ASCUS with positive high risk HPV cervical (Primary Dx); Pre-procedural examination 05/17/20 Orders Only Brandon Adams [address] [place] [address] [address] [place] [address] Dixie Hsieh MD 05/05/20 Telephone Brandon Adams [address] [place] [address] [address] [place] [address] Dixie Hsieh MD Appointment/Schedules from Last 3 [...] Last Done Comments Hepatitis C Screening 2002 HPV Vaccines (2 - 3-dose series) 02/22/2018 01/26/20 18 Meningococcal B Vaccine (1 o f 2 - Standard) 2018 Pneumococcal vaccine <65 (1 of 1 - PPSV23, PCV20, or PCV21) 2021 08/03/2003, 05/01/2003, 02/27/2003, Additional history exists Influenza Vaccine (#1) 2025 07/16/2020 Cervical Cancer [...] 06/13/2008, 12/21/2003 Medical Devices Implanted Type Area Supervisor Lace Tearing Device Identifier Shelf Expiration Date Model / [...] ASP - 06/19/2025 12:26 PM CDT [facility] Department of Pathology [address] [place] [address] Note to Patients: This report may contain [...] : 2000 (Age: 24) Gender: F Address: [address] [place] [address] Hospital #: [id number] Service: Gastro Location: Patient Type: [facility] OUTPATIENT Taken: 06/16/2025 Received: 06/16/2025 Accessioned: 06/16/2025 [...] interpretation for this case was performed at [facility], Department of Surgical Pathology, [address] [facility] [place], [place] [id number], [place] [address] IA # [id number] us Lobo Carballo MD LAB PATHOLOGY ORDERABLES Fin al Result PATHOLOGY TEMP LLB FOR ASP * EGD (06/16/2025 7:57 AM CDT) Anatomical Region Laterality Modality Other Narrative Procedure Note Lobo Carballo MD - 06/16/2025 7:57 AM CDT [facility] Patient Name: Kailash Hernandez Procedure Date: 06/16/2025 7:57 AM Date of : 2000 Admit Type: Outpatient Age: 24 Gender: Female Attending MD: Lobo Carballo M.D., Room: [facility] EOC PROCEDURE 1 Note Status: Finalized Procedure: Upper GI endoscopy Indications: Abdominal pain Referring MD: Porsche LunaNVaughn Providers: Lobo Carballo M.D. Medicines: Monitored Anesthesia [...] Carballo MD - 06/16/2025 7:57 AM CDT [facility] Patient Name: Kailash Hernandez Procedure Date: 06/16/2025 7:57 AM Date of : 2000 Admit Type: Outpatient Age: 24 Gender: Female Attending MD: Lobo Carballo M.D., Room: [facility] PROCEDURE 1 Note Status: Finalized Procedure: Colonoscopy [...] The scope was passed under direct vision.The [id number] COLONSCOPE was introduced through theanus and advanced to the terminal ileum. The colonoscopy was performed without difficulty. The patient tolerated the procedure well. The quality of thebowel preparation was good. A computer-assisted devicewith artificial intelligence (Wix) designed todetect polyps was used during the [...] (acute phase) (06/05/2025 3:04 PM CDT) Pathologist [facility] CRP 7.8 <=10.0 mg/L Blood 06/05/2025 3:04 PM CDT 06/05/2025 6:29 PM CDT Lobo Carballo MD LAB BLOOD ORDERABLES Final R esult KEL[facility]IN [address] [facility] Department [place] [address] * POCT hCG, urine (05/17/2025 1:45 PM CDT) Pathologist [facility] HCG, ur, POC Negative Negative Lot Number [...] GLANDS, SCANT SQUAMOUS EPITHELIUM, INFLAMMATION, AND MUCUS. [facility] 05/23/2025 1505 Local . Comment LAB [facility] [...] . Comment [facility] Comment: CPT . [id number], [id number] 05/17/2025 05/17/2025 Narrative [facility] - 05/23/2025 4:12 PM CDT Performed at: - [facility] [address] [place] [id number] Optical Glass Inspector: Dev Schmidt MD, Phone: [phone] Performed at: - [facility] [id number] [place] [id number] Optical Glass Inspector: Cheng Ferraro MD, Phone: [phone] Performed at: - [facility]to [address] [place] [id number] Optical Glass Inspector: Dev Schmidt MD, Phone: [phone] Specimen Comment: No. of containers..02 Tissue us Dixie Hsieh MD LAB PATHOLOGY ORDER TANIA Final Result [facility] 02 [facility] 03 [...] by Comment [facility] - 01 Comment:Aliya Ojeda, Patternmaker Grader (ASCP) Electronically signed by Comment [facility] - [...] - 02/27/2025 8:09 PM CDT Performed at: Lab[address] [id number] Optical Glass Inspector: Allegra Mcfarlane MD, Phone: [phone] Specimen Comment: [id number] Specimen Comment: No. of containers..01 ThinPrep Vial Phyllis Parekh NP LAB CYTOLOGY ORDERABLES Fin al Result Performing Organization Address City/[facility] Co de Phone Number [facility] - * N. gonorrhoeae/C. trachomatis Amplification (02/21/2025 9:14 AM CDT) C. trachomatis RNA Negative Negative [facility] 02 N. gonorrhoeae RNA Negative Negative [facility] 02 02/21/2025 9:14 AM CDT 02/21/2025 Narrative [facility] - 02/27/2025 8:09 PM CDT Performed at: [address] [id number] Optical Glass Inspector: Allegra Mcfarlane MD, Phone: [phone] Phyllis Parekh NP LAB MICROBIOLOGY - GENERAL ORDERABLES Final Result Performing Organization Address City/[facility]/ZIP Co de Phone Number [facility] 02 from Last 3 Months or Most Recently Relevant to Health Maintenance Insurance CHOICE PLUS , [facility] [address] [place] [address] CHOICE PLUS , [facility] [address] [place] [address] CHOICE PLUS [address] [facility] [address] [place] [phone] [facility] CHOICE PLUS WORKERS COMPENSATION GENERIC [address] [place] [address] Care Teams Certified Paralegal Relationship Specialty Start Date End Date Chanell Farr NP [address] [facility] [address] [place], [place] [id number] PCP - General Family Medicine 03/06/25
--- OUTSIDE RECORDS SUMMARY | 2025-07-31 15:13 | XMS_ITS | Encounter Summary ---
Author Organization [facility] Healthcare Address [address] [place] [address] Care Team Providers Care Art Manager Name Role Phone Chanell Farr NP Primary Care Provider [phone] Encounter Details Date Type Department Care Team (Latest Contact Info) Description 06/06/2025 Results Follow-Up [facility] Group Gastroenterology at [address] [place] [address] Lobo Carballo MD [address] [place] [address] [address] [place] [address] CRP (acute phase) Social History [...] on filedocumented in this encounter Care Teams Art Manager Relationship Specialty Start Date End Date Chanell Farr NP [address] [facility] [address] [place] [address] PCP - General Family Medicine 03/06/25 documented as of this encounter
== END 2025-07-31 15:35 | disposition left against medical advice (07) ==
LOC: ANHED 15:09
DX: R10.9 Unspecified abdominal pain (principal)
CPT/HCPCS: 99199